=== PATIENT | female | born 1955 | race Caucasian/White ===

== ENCOUNTER 2022-12-27 14:01 | Emergency (ER) | payer MEDICARE, SELFPAY ==
[2022-12-27 14:05] VITALS: BP 150/77; PULSE 81; RESP 18; TEMP 37.1; O2SAT 100
--- NOTE | 2022-12-27 14:45 | ED.SKABFB ---
HPI - Skin/Abscess/Foreign Bdy General Chief complaint: Skin/Abscess/Foreign Body Stated complaint: Rash Source: patient and RN notes reviewed History of Present Illness HPI narrative: 67-year-old female presents urgent care with complaints of a rash around bilateral eyes. Patient states this started approximately 2 days ago. Patient cannot think of where this came from except for the fact that she has been fighting a cold and put a cold washcloth to her face and eyes on Sunday and didn't realize it had bleach on it. Patient reports itchiness with this rash. Denies any oral swelling, fevers, chills, visual disturbance, extraocular movement pain, chest pain, or shortness of breath. Some parts of this dictation were generated by voice recognition software and may contain typographical and/or grammatical inaccuracies. Related Data Allergies Allergy/AdvReac Type Severity Reaction Status Date / Time No Known Allergies Allergy Unverified 12/27/22 14:23 Review of Systems Review of Systems: CONSTITUTIONAL: Denies fever, chills, or sweats. EYES: Denies visual changes, redness, or discharge. ENT: Denies otalgia and sore throat CARDIOVASCULAR: Denies chest pain, palpitations, or edema. RESPIRATORY: Denies cough or dyspnea. GASTROINTESTINAL: Denies abdominal pain, nausea, vomiting, or diarrhea. GENITOURINARY: Denies dysuria or hematuria. SKIN: Rash around eyes MUSCULOSKELETAL: Denies back pain, joint pain, or myalgia. NEUROLOGIC: Denies headache, numbness, or weakness. PMFSH Comments At the time of my signature, I reviewed and agree with the nursing past medical, surgical, social, and family history. There is no relevant family history pertinent to the patient complaint. Exam Narrative: GENERAL: This is a well-nourished, well-developed patient, in no apparent distress. HEAD: normocephalic, atraumatic. EYES: Sclera clear/white. Vision is grossly intact. EARS: External ears normal. NOSE: External nose normal with no obvious nasal discharge, nares without redness, no rhinorrhea. THROAT: Mucous membranes moist, posterior pharynx clear. NECK: Neck supple, non-tender without lymphadenopathy, masses or thyromegaly. CARDIOVASCULAR: Regular rate and rhythm without murmurs, gallops, or rubs. RESPIRATORY: Clear to auscultation. Breath sounds equal bilaterally. No wheezes, rales, or rhonchi. GASTROINTESTINAL: Abdomen soft, non-tender, nondistended. Bowel sounds are active. No hepato-splenomegaly, or palpable masses. No guarding. SKIN: faint erythema around bilaterally orbits and forehead. NEURO: awake, alert, and oriented to person, place and time. There were no obvious focal neurologic abnormalities. Course Course Level of Care: Express Care Visit Vital Signs Vital signs: Vital Signs Temperature 98.7 F 12/27/22 14:05 Pulse Rate 81 12/27/22 14:05 Respiratory Rate 18 12/27/22 14:05 Blood Pressure 150/77 H 12/27/22 14:05 Pulse Oximetry 100 12/27/22 14:05 Oxygen Delivery Room Air 12/27/22 14:05 Temperature 98.7 F 12/27/22 14:05 Pulse Rate 81 12/27/22 14:05 Respiratory Rate 18 12/27/22 14:05 Blood Pressure 150/77 H 12/27/22 14:05 Pulse Oximetry 100 12/27/22 14:05 Oxygen Delivery Room Air 12/27/22 14:05 Reviewed MDM - Skin/Abscess/Foreign Bdy MDM Narrative Medical decision making narrative: Take medications as directed. Increase her fluids and her vitamin C intake. With any new or worsening symptoms go to the emergency department. Follow-up with your primary care physician in 2-5 days otherwise. Differential Diagnosis Differential diagnosis: Likely viral exanthem, cellulitis and contact dermatitis Critical Care Time Critical Care Time Critical Care Time: No Discharge Plan Discharge Clinical Impression: Contact dermatitis Qualifiers: Contact dermatitis type: irritant Contact dermatitis trigger: other chemical product Qualified Code(s): L24.5 - Irritant contact dermatitis due to other
== END 2022-12-27 14:58 | disposition home or self-care (01) ==
PROVIDERS: Emergency Provider Nurse Practitioner Family; PCP Internal Medicine
DX: L24.5 Irritant contact dermatitis due to other chemical products (principal)
CPT/HCPCS: 99203; G0463